=== PATIENT | male | born 1965 | race Caucasian/White ===

== ENCOUNTER → 2016-11-06 | Outpatient (CLI) | payer OTHER, BC ==
[~2016-11-06] MED LIST: ALBUAER19 INH; B-COCAP2 PO; CETI10TA84 PO; FLNIN NAE; FLX10 PO; MULT-506 PO; OMEG10007 PO; PARO1TAB27 PO
--- NOTE | 2016-11-06 10:09 | DIAGNOSTIC IMAGING REPORT ---
RIGHT HAND MIN 3 VIEWS ROUTINE HISTORY: 51 years-old Male RIGHT HAND PAIN 3RD DIGIT Right acute right hand pain status post injury. Pain is most pronounced within the third digit. COMPARISON: None available. TECHNIQUE: 3 views of the right hand. FINDINGS: Mild first carpometacarpal and multidigit interphalangeal degenerative changes are seen. There is no acute fracture or dislocation. No opaque foreign body. Soft tissues are unremarkable. IMPRESSION: Mild degenerative changes without acute fracture or dislocation. The above report was generated using voice recognition software. It may contain grammatical, syntax or spelling errors. Electronically signed by: Hakan Whitman M.D. 11/06/2016 10:08 AM Dictated Date/Time: 11/06/2016 10:06 AM
== END | disposition home or self-care (01) ==
LOC: C.RAD1850 09:52
PROVIDERS: ATTEND Nurse Practitioner Adult Health
DX: M79.641 Pain in right hand (principal)